=== PATIENT | male | born 1970 | race Caucasian/White ===

== ENCOUNTER 2018-01-13 05:06 | Emergency (ER) | payer OTHER ==
[2018-01-13 05:19] VITALS: BMI 30.4
[2018-01-13 05:34] LABS: BILIRUBIN,URINE NEGATIVE (NEGATIVE); BLOOD/HEMOGLOBIN,URINE 5+ (NEGATIVE); GLUCOSE, URINE 2+ (NEGATIVE); KETONES,URINE NEGATIVE (NEGATIVE); LEUKOCYTE ESTERASE ,URINE NEGATIVE (NEGATIVE); NITRITES,URINE NEGATIVE (NEGATIVE); PROTEIN,URINE 2+ (NEGATIVE); UROBILINOGEN,URINE 1+ (NORMAL)
[2018-01-13] MEDS ORDERED: NS 1000 ML 1,000 ML IV ONE (05:35)
[2018-01-13] MEDS ORDERED: TORADOL 30 MG VIAL IVP STA (05:35)
[2018-01-13] MEDS ORDERED: NS 1000 ML 1,000 ML ONE (05:35)
[2018-01-13] MEDS ORDERED: TORADOL 30 MG VIAL ONE (05:35)
--- NOTE | 2018-01-13 05:40 | DR.GENAD ---
HPI - PCP Primary Care Physician: NFD - Complaint/Symptoms Chief Complaint Doctors Comments: Patient is complaining of right CVA and back pain for the past 2-3 days getting worst tonight with inability to urinate. States he has been having problems urinating for the past two days but has been urinating a small amount. He denies fever, chills, nausea or vomiting but has been diaphoretic this evening. States he does not have a local doctor and he denies history or kidney stones. He denies chest pain, SOB, cold or cough. States his pain is 30 of 10. He smokes one pack cigarettes daily and denies alcohol usage. States he smoked marijuana few days ago but denies cocaine usage. He denies any recent trauma. Chief Complaint:: RIGHT FLANK PAIN - Nurses notes reviewed Nurses Notes Review: Yes - Source History Provided: Patient - Mode of Arrival Mode of Arrival: Ambulatory - Timing Onset of Chief Complaint: 01/11/18 Came on: Gradually - Duration Duration: Constant How lon Duration: Days - Location Location: right CVA pain - Severity Severity: Severe - Modifying Factors Worsens:: movement Improves:: nothing PMH - PMH Past Medical History: No Past Surgical History: No - Family History History of Family Medical Conditions: Yes Family Medical History: Coronary Artery Disease - Social History Does patient currently use any type of tobacco product: Yes Have you used tobacco products in the last 12 months: Yes Type of Tobacco Use: Cigarettes Does any household member use tobacco: No Alcohol Use: None Do you use any recreational Drugs:: No Lives With: Family Lives Where: Home - infectious screening In the last 2 months have you had wt loss of >10#?: NO Have you had fever, night sweats or hemotysis?: No Have you traveled outside the country in the last 6 months?: No Isolation: Standard ROS - Review of Systems Constitutional: No Symptoms Reported, Loss of Appetite. negative: See HPI, Chills, Diaphoresis, Fever, Malaise, Weakness, Irritable, Fatigue, Other Eyes: No Symptoms Reported. negative: See HPI, Eye Pain, Blurred Vision, Tearing, Discharge, Photophobia, Diplopia, Other ENTM: No Symptoms Reported Respiratoy: No Symptoms Reported. negative: See HPI, Productive Cough, Non- Productive Cough, Moist Cough, Dry Cough, Hacking Cough, Barking Cough, Brassy Cough, Orthopnea, Short of Breath, Stridor, Wheezing, Hemoptysis, Other Cardiovascular: No Symptoms Reported. negative: See HPI, Chest Pain, Edema, Palpitations, Syncope, Cyanosis, Skin Mottling, Other Gastrointestinal/Abdominal: Abdominal Pain, Nausea. negative: No Symptoms Reported, See HPI, Constipation, Diarrhea, Vomiting, Food Intolerance, Other Genitourinary: No Symptoms Reported, Other (oliguria). negative: See HPI, Discharge, Dysuria, Frequency, Hematuria, Pain, Bleeding Neurological: No Symptoms Reported Musculoskeletal: No Symptoms Reported, Back Pain (right CVA pain) Integumentary: No Symptoms Reported. negative: See HPI, Change in Color, Change in Hair/Nails, Dryness, Lesions, Lumps, Rash, Itching, Wound, Bruises, Juandice, Other Hematologic/Lymphatic: No Symptoms Reported. negative: See HPI, Anemia, Blood Clots, Easy Bleeding, Easy Bruising, Swollen Glands, Lymphadenopathy, Other Endocrine: No Symptoms Reported Psychiatric: No Symptoms Reported. negative: See HPI, Anxiety, Depression, Hallucinations, Excessive crying, Suicidal, Other PE - Vital Signs Vitals: Temperature 97.9 F Pulse Rate 104 Respiratory Rate 18 Blood Pressure 169/118 O2 Sat by Pulse Oximetry 97 - General Limitations: No Limitations General Appearance: In Distress (severe), Obese - Head Head Exam: Normal Inspection, Atraumatic, Normocephalic - Eyes Eye exam: Normal Appearance, PERRL, EOMI. negative: Scleral Icterus, Conjunctival Injection, Nystagmus, Miosis, Mydrasis, Periorbital Swelling, Periorbital Tenderness, Other - ENT ENT Exam: Normal Exam, Normal Oropharynx, Normal External Ear Exam, Mucous Membranes Moist, TM's Normal Bilaterally External Ear Exam: Normal External Inspection TM/Canal Exam: Bilateral Normal Nose Exam: Normal Nose Exam Mouth Exam: Normal Inspection. negative: Drooling, Trismus, Lip Swelling, Tongue Elevation, Tongue Swelling, Laceration, Other Throat Exam: Normal Inspection. negative: Tonsillar Erythema, Tonsillomegaly, Tonsillar Exudate, R Peritonsillar Mass, L Peritonsillar Mass, Muffled Voice, Other - Neck Neck Exam: Normal Inspection, Full ROM, Trachea Midline. negative: Tenderness, Meningismus, Lymphadenopathy, Thyromegaly, Other - Chest Chest Inspection: Normal Inspection, Symmetric Chest Wall Rise. negative: Tenderness, Rash, Abscess, Other - Respiratory Respiratory Exam: Normal Lung Sounds Bilat. negative: Accessory Muscle Use, Chest Wall Tenderness, Prolonged Expiratory Phase, Respiratory Distress, Stridor , Other Respiratory Exam: Bilateral Clear to Auscultation - Abdominal Exam Abdominal Exam: Normal Inspection, Normal Bowel Sounds, Soft, Tenderness (right CVA and RUQ tenderness), Guarding, Dimnished Bowel Sounds Abdominal Tenderness: RUQ, Severe - Extremities Extremities Exam: Normal Inspection, Full ROM, Normal Capillary Refill. negative: Tenderness, Edema, Joint Swelling, Calf Tenderness, Other - Back Back Exam: Normal Inspection, Full ROM, (R) CVA Tenderness - Neurologic Neurological Exam: Alert, Oriented X3, CN II-XII Intact, Reflexes Normal. negative: Normal Gait (gait not tested) - Psychiatric Psychiatric Exam: Normal Affect, Normal Mood. negative: Depressed, Agitated, Anxious, Flat Affect, Manic, Homicidal Ideation, Suicidal Ideation, Other - Skin Skin Exam: Warm, Dry, Intact, Normal Color. negative: Rash, Cyanosis, Diaphoresis, Erythema, Pallor, Mottled, Other ROR - Labs Reviewed Laboratory Results Reviewed?: Yes (all labs and x-ray results reviewed and discussed with patient and spouse) Result Diagrams: 01/13/18 05:35 01/13/18 05:35 Laboratory: WBC 14.4 X10^3/uL (3.6-10.0) H 01/13/18 05:35 RBC 5.41 X10^6/uL (4.7-6.0) 01/13/18 05:35 Hgb 16.2 g/dL (13.5-18.0) 01/13/18 05:35 Hct 46.2 % (42.0-54.0) 01/13/18 05:35 MCV 85.4 fL (80.0-100.0) 01/13/18 05:35 MCH 29.9 pg (27.0-34.0) 01/13/18 05:35 MCHC 35.0 g/dL (33.0-35.0) 01/13/18 05:35 RDW 13.9 % (11.6-16.5) 01/13/18 05:35 Plt Count 179 X10^3/uL (150.0-450.0) 01/13/18 05:35 MPV 10.5 fL (7.4-11.0) 01/13/18 05:35 Neut % (Auto) 77.9 % (42.0-75.0) H 01/13/18 05:35 Lymph % (Auto) 10.3 % (21.0-51.0) L 01/13/18 05:35 [place] % (Auto) 9.6 % (0.0-13.0) 01/13/18 05:35 Eos % (Auto) 1.0 % (0.9-2.9) 01/13/18 05:35 Baso % (Auto) 1.2 % (0.2-1.0) H 01/13/18 05:35 Neut # (Auto) 11.2 x10^3/uL (2.2-4.8) H 01/13/18 05:35 Lymph # (Auto) 1.5 X10^3/uL (1.3-2.9) 01/13/18 05:35 [place] # (Auto) 1.4 x10^3/uL (0.3-0.8) H 01/13/18 05:35 Eos # (Auto) 0.1 x10^3/uL (0.0-0.2) 01/13/18 05:35 Baso # (Auto) 0.2 X10^3/uL (0.0-0.1) H 01/13/18 05:35 Absolute Nucleated RBC 0.1 /100WBC 01/13/18 05:35 Sodium 137 mmol/L (136-145) 01/13/18 05:35 Corrected Sodium 140 mmol/L (136-145) 01/13/18 05:35 Potassium 4.2 mmol/L (3.5-5.1) 01/13/18 05:35 Chloride 101 mmol/L (98-107) 01/13/18 05:35 Carbon Dioxide 22.9 mmol/L (21-32) 01/13/18 05:35 BUN 17 mg/dL (7-18) 01/13/18 05:35 Creatinine 1.19 mg/dL (0.70-1.30) 01/13/18 05:35 Est GFR (MDRD) Af Amer > 60 (>60) 01/13/18 05:35 Est GFR (MDRD) Non-Af > 60 (>60) 01/13/18 05:35 Glucose 240 mg/dL (65-99) H 01/13/18 05:35 Calcium 8.7 mg/dL (8.5-10.1) 01/13/18 05:35 Corrected Calcium TNP 01/13/18 05:35 Total Bilirubin 1.00 mg/dL (0.2-1.0) 01/13/18 05:35 AST 22 Units/L (15-37) 01/13/18 05:35 ALT 49 Units/L (12-78) 01/13/18 05:35 Alkaline Phosphatase 114 Units/L (46-116) 01/13/18 05:35 Total Protein 7.5 g/dL (6.4-8.2) 01/13/18 05:35 Albumin 3.7 g/dL (3.4-5.0) 01/13/18 05:35 Globulin 3.8 g/dL (2.5-4.5) 01/13/18 05:35 Albumin/Globulin Ratio 1.0 Ratio (1.1-2.1) L 01/13/18 05:35 Amylase 35 Units/L (25-115) 01/13/18 05:35 Lipase 152 Units/L (73-393) 01/13/18 05:35 Specimen Type Clean catch urine 01/13/18 05:24 Urine Color Yellow (YELLOW) 01/13/18 05:24 Urine Appearance Clear (CLEAR) 01/13/18 05:24 Urine pH 5.0 (5.0 - 8.0) 01/13/18 05:24 Ur Specific [place] 1.030 (1.000-1.030) 01/13/18 05:24 Urine Protein 2+ (NEGATIVE) 01/13/18 05:24 Urine Glucose (UA) 2+ (NEGATIVE) 01/13/18 05:24 Urine Ketones Negative (NEGATIVE) 01/13/18 05:24 Urine Occult Blood 5+ (NEGATIVE) 01/13/18 05:24 Urine Nitrite Negative (NEGATIVE) 01/13/18 05:24 Urine Bilirubin Negative (NEGATIVE) 01/13/18 05:24 Urine Urobilinogen 1+ (NORMAL) 01/13/18 05:24 Ur Leukocyte Esterase Negative (NEGATIVE) 01/13/18 05:24 Urine RBC 20-30 /HPF (NONE SEEN) 01/13/18 05:24 Urine WBC 0-2 /HPF (NONE SEEN) 01/13/18 05:24 Ur Squamous Epith Cells Rare /HPF (NEGATIVE) 01/13/18 05:24 Urine Bacteria Trace /HPF (NEGATIVE) 01/13/18 05:24 Urine Yeast Few /HPF (NEGATIVE) 01/13/18 05:24 Ur Culture Indicated? No/not indicated 01/13/18 05:24 Urine Opiates Screen Negative (NEG=<300) 01/13/18 06:02 Urine Methadone Screen Negative (NEG=<300) 01/13/18 06:02 Ur Barbiturates Screen Negative (NEG=<200) 01/13/18 06:02 Ur Phencyclidine Scrn Negative (NEG=<25) 01/13/18 06:02 Ur Amphetamines Screen Positive (NEG=<1000) 01/13/18 06:02 U Benzodiazepines Scrn Negative (NEG=<200) 01/13/18 06:02 Urine Cocaine Screen Negative (NEG=<300) 01/13/18 06:02 U Marijuana (THC) Screen Positive (NEG=<50) A 01/13/18 06:02 - XRAY XRAY Interpreted by: Radiologist (CT abdomen and pelvis: Mild right hydroureteronephrosis with punctate stone at the right ureterovesical junction) - Diagnosis Discharge Problem: Right nephrolithiasis, Essential hypertension, Hyperglycemia Abdominal pain Qualifiers: Abdominal location: right upper quadrant Qualified Code(s): R10.11 - Right upper quadrant pain - Discharge Plan Disposition: 01 HOME, SELF-CARE Condition: Stable Prescriptions: Ketorolac Tromethamine [Toradol Tab] 10 mg PO Q8H PRN #12 tab PRN Reason: Pain Tamsulosin HCl [Flomax] 0.4 mg PO DAILY #10 cap - Follow ups/Referrals Follow ups/Referrals: NFD,None [Primary Care Provider] - 3 days MARY PALMA [REFERRING] - 3 days Jacob Thacker [STAFF PHYSICIAN] - 3 days - Instructions Instructions: Kidney Stones, [id number], Hyperglycemia, [id number], Preventing Hypertension, Abdominal Pain, Adult, [id number], Hypertension, Easy -to-Read
[2018-01-13 05:42] LABS: APPEARANCE,URINE CLEAR (CLEAR); COLOR,URINE YELLOW (YELLOW); RBC,URINE 20-30 /HPF (NONE SEEN)
[2018-01-13 05:43] LABS: BACTERIA,URINE TRACE /HPF (NEGATIVE); SQUAMOUS EPITHELIAL CELL,UR RARE /HPF (NEGATIVE); YEAST,URINE FEW /HPF (NEGATIVE)
[2018-01-13 05:51] LABS: BASOPHILS # (AUTO) 0.2 X10^3/uL (0.0-0.1); BASOPHILS % (AUTO) 1.2 % (0.2-1.0); EOSINOPHILS # (AUTO) 0.1 x10^3/uL (0.0-0.2); HEMATOCRIT 46.2 % (42.0-54.0); HEMOGLOBIN 16.2 g/dL (13.5-18.0); LYMPHOCYTES # (AUTO) 1.5 X10^3/uL (1.3-2.9); LYMPHOCYTES % (AUTO) 10.3 % (21.0-51.0); MEAN CORPUSCULAR HEMOGLOBIN 29.9 pg (27.0-34.0); MEAN CORPUSCULAR VOLUME 85.4 fL (80.0-100.0); MEAN PLATELET VOLUME 10.5 fL (7.4-11.0); MONOCYTES # (AUTO) 1.4 x10^3/uL (0.3-0.8); MONOCYTES % (AUTO) 9.6 % (0.0-13.0); NEUTROPHILS # (AUTO) 11.2 x10^3/uL (2.2-4.8); NEUTROPHILS % (AUTO) 77.9 % (42.0-75.0); PLATELET COUNT 179 X10^3/uL (150.0-450.0); RED BLOOD COUNT 5.41 X10^6/uL (4.7-6.0); RED CELL DISTRIBUTION WIDTH 13.9 % (11.6-16.5); WHITE BLOOD COUNT 14.4 X10^3/uL (3.6-10.0)
[2018-01-13 05:59] LABS: ALANINE AMINOTRANSFERASE 49 Units/L (12-78); ALBUMIN 3.7 g/dL (3.4-5.0); ALKALINE PHOSPHATASE 114 Units/L (46-116); AMYLASE 35 Units/L (25-115); ASPARTATE AMINO TRANSFERASE 22 Units/L (15-37); BLOOD UREA NITROGEN 17 mg/dL (7-18); CALCIUM 8.7 mg/dL (8.5-10.1); CARBON DIOXIDE 22.9 mmol/L (21-32); CHLORIDE 101 mmol/L (98-107); COR NA(FOR HYPERGLY) 140 mmol/L (136-145); CREATININE 1.19 mg/dL (0.70-1.30); LIPASE 152 Units/L (73-393); SODIUM 137 mmol/L (136-145); TOTAL PROTEIN 7.5 g/dL (6.4-8.2); eGFR BLACK RACES > 60 (>60); eGFR NON BLACK RACES > 60 (>60)
[2018-01-13] MEDS ORDERED: CATAPRES TAB 0.2 MG ONE (06:55)
[2018-01-13] MEDS ORDERED: CATAPRES TAB 0.2 MG PO ONE (06:55)
[2018-01-13 07:34] VITALS: BP 150/90
== END 2018-01-13 07:35 | disposition home or self-care (01) ==
LOC: ER 05:06
DX: N20.0 Calculus of kidney (principal); I10 Essential (primary) hypertension; R73.9 Hyperglycemia, unspecified; R10.11 Right upper quadrant pain; N13.30 Unspecified hydronephrosis
CPT/HCPCS: 36415; 74176; 80053; 80307; 81001; 82150; 83690; 85025; 96365; 96367; 96374; 96375; 99282; 99283; A4216; A4222; G0434; J1885